=== PATIENT | female | born 1985 | race Caucasian/White ===

== ENCOUNTER 2021-07-26 09:04 | Outpatient (CLI) | payer OTHER | END 2021-07-26 09:05 | disposition home or self-care (01) | LOC: CSHMAMMO 09:04 | PROVIDERS: ATTEND Obstetrics & Gynecology | DX: Z12.31 Encounter for screening mammogram for malignant neoplasm of breast (principal); Z80.3 Family history of malignant neoplasm of breast | CPT/HCPCS: 77063; 77067 ==

== ENCOUNTER 2021-12-15 22:16 | Emergency (ER) | payer OTHER ==
[2021-12-15] MEDS ORDERED: Sulfameth/Trimethoprim DS 800-160mg TAB ONE (23:42)
[2021-12-15] MEDS ORDERED: Boostrix 0.5 ML (Tdap) VIAL (>/=7 yrs of age) ONE (23:43)
== END 2021-12-16 00:01 | disposition home or self-care (01) ==
LOC: CSHERS 22:16
DX: S01.411A Laceration without foreign body of right cheek and temporomandibular area, initial encounter (principal); X58.XXXA Exposure to other specified factors, initial encounter
CPT/HCPCS: 90471; 90715; 99282